=== PATIENT | male | born 1955 | race Caucasian/White ===

== ENCOUNTER 2016-09-12 12:38 | Emergency (ER) | payer OTHER ==
[~2016-09-12] VITALS: Ht 167.6 cm; Wt 70.0 kg
[2016-09-12 13:15] VITALS: BP 113/56; PULSE 85; RESP 18; TEMP 98.9; O2SAT 99
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
[2016-09-12] MEDS ORDERED: ORPHENADRINE INJ 60 MG/2 ML AMP IM ONE (13:30)
[2016-09-12] MEDS ORDERED: KETOROLAC TROMETHAMINE 60 MG/2 ML (IM) VIAL IM ONE (13:30)
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
[2016-09-12] MEDS ORDERED: IBUP800T23 PO (14:04)
[2016-09-12] MEDS ORDERED: ROBA500T PO (14:04)
== END 2016-09-12 14:12 | disposition home or self-care (01) ==
LOC: EDBD → NEPD 12:38
DX: M54.42 Lumbago with sciatica, left side (principal); S39.012A Strain of muscle, fascia and tendon of lower back, initial encounter; V43.52XA Car driver injured in collision with other type car in traffic accident, initial encounter
CPT/HCPCS: 72100; 96372; 99284; J1885; J2360